=== PATIENT | female | born 1980 | race Caucasian/White ===

== ENCOUNTER → 2016-07-06 | Outpatient (CLI) | payer BC | END | disposition home or self-care (01) | CPT/HCPCS: 97802 ==

== ENCOUNTER → 2016-12-31 | Outpatient (CLI) | payer BC ==
--- NOTE | 2016-12-31 13:11 | US ---
EXAMINATION TYPE: US gallbladder DATE OF EXAM: 12/31/2016 COMPARISON: NONE CLINICAL HISTORY: R10.11 rt upper quad. RUQ pain x 1 year. Intermittent nausea EXAM MEASUREMENTS: Liver Length: 17.4 cm Gallbladder Wall: 0.3 cm CBD: 0.5 cm Right Kidney: 11.1 x 5.4 x 4.7 cm Pancreas: limited evaluation due to overlying bowel content Liver: attenuating, hypoechoic area near tanner hepatis = 2.7 x 1.9 x 2.6cm probable focal sparing Gallbladder: no evidence of stones Evidence for sonographic Argueta's sign: no CBD: appears wnl Right Kidney: no evidence of hydronephrosis or mass Visualized liver is heterogeneously hyperechoic in appearance. Evaluation for focal masses is subopti mal due to the heterogeneity. There is more central hypoechoic area that is somewhat oval and circums cribed on image 6144 which true lesion cannot be excluded. No intrahepatic ductal dilatation is seen. Gallbladder is identified without shadowing mobile gallstones. IMPRESSION: 1. No gallstones or ultrasound evidence for acute cholecystitis. 2. Heterogeneous hyperechoic appearance of liver favors diffuse fatty infiltration. Cannot exclude ov al solid lesion near gallbladder fossa versus rounded focal fatty sparing, further investigation with multi phase contrast-enhanced liver protocol MRI or CT is advised.
--- NOTE | 2016-12-31 15:15 | NM ---
EXAMINATION TYPE: NM hepatobiliary w EF DATE OF EXAM: 12/31/2016 COMPARISON: Same day gallbladder ultrasound HISTORY: Right upper quadrant pain per order. Additional symptoms of nausea and heartburn per patient . TECHNIQUE: After the intravenous administration of 5.4 mCi Tc 99m Mebrofenin hepatobiliary scintigrap hy is performed. Immediate images post injection. FINDINGS: There is satisfactory initial accumulation of tracer by the liver. The gallbladder is visualized wit hin 10 minutes. The small bowel activity is noted within 10 minutes. At one hour 8 ounces of oral e nsure plus is given to mimic CCK and gallbladder ejection fraction is impossible to calculated as the re is significant overlap from radiotracer accumulation in bowel. Therefore there is no scintigraphi c evidence of cystic or common bile duct obstruction to suggest acute cholecystitis. Ejection fractio n could not be calculated. IMPRESSION: No scintigraphic evidence for acute cholecystitis. Suboptimal study with inability to theron culate ejection fraction noted.
== END | disposition home or self-care (01) ==
LOC: RADUSMAIN 11:59
PROVIDERS: ATTEND Family Medicine
DX: R93.2 Abnormal findings on diagnostic imaging of liver and biliary tract (principal); R10.11 Right upper quadrant pain
CPT/HCPCS: 76705; 78226; A9537

== ENCOUNTER → 2017-01-11 | Outpatient (CLI) | payer BC ==
--- NOTE | 2017-01-11 20:25 | CT ---
EXAMINATION TYPE: CT abdomen wo/w con DATE OF EXAM: 01/11/2017 HISTORY: RUQ pain and abnormal findings on US. CT DLP: 2018.2mGycm Automated Exposure Control for Dose Reduction was Utilized. CONTRAST: CT scan of the abdomen is performed with oral and without and with IV Contrast, patient injected with 100 mL of Omnipaque 300. COMPARISON: Gallbladder ultrasound December 31, 2016. FINDINGS: LUNG BASES: No significant abnormality is appreciated. LIVER/GB: Liver is diffusely hypodense on noncontrast images consistent with fatty infiltration as landeros spected on recent ultrasound. Focal fatty sparing or gallbladder fossa is noted. No worrisome solid o r cystic mass is seen. PANCREAS: No significant abnormality is seen. SPLEEN: No significant abnormality is seen. ADRENALS: No significant abnormality is seen. KIDNEYS: Subcentimeter low dense lesion medially upper pole left kidney on series 8 image 30 is too s mall to further characterize per presumed benign. BOWEL: No significant abnormality is seen. LYMPH NODES: No greater than 1cm abdominal lymph nodes are appreciated. OSSEOUS STRUCTURES: No significant abnormality is seen. OTHER: No significant additional abnormality is seen. IMPRESSION: Diffuse fatty infiltration of liver is confirmed with focal fatty sparing. No worrisome i ntrahepatic mass or intrahepatic ductal dilatation is seen.
== END | disposition home or self-care (01) ==
LOC: RADCTMAIN 19:03
PROVIDERS: ATTEND Family Medicine
DX: K76.0 Fatty (change of) liver, not elsewhere classified (principal)
CPT/HCPCS: 74170; Q9967

== ENCOUNTER → 2018-08-01 | Outpatient (CLI) | payer BC ==
--- NOTE | 2018-08-01 21:42 | MR ---
EXAMINATION TYPE: MR brain wo con DATE OF EXAM: 08/01/2018 COMPARISON: NONE HISTORY: Headache per order. Aniscoria with 1 sided headaches per patient. TECHNIQUE: Multiplanar, multisequence imaging of the brain and brainstem is performed without IV cont rast. FINDINGS: Diffusion weighted images demonstrate no evidence of a recent infarct or other diffusion abnormality. There is no extraaxial fluid collection or significant white matter signal abnormality. The ventricu lar system and cisternal spaces are normal in size and appearance. The brain volume is age appropria te. Midline structures demonstrate normal morphology. The craniocervical junction appears within normal limits. Normal vascular flow voids are present. The visualized sinuses are clear and the globes are i ntact. Patchy fluid signal left greater than right bilateral mastoid air cells is present. IMPRESSION: Possible mild left greater than right mastoiditis otherwise unremarkable study.
== END | disposition home or self-care (01) ==
LOC: RADMRIMAIN 19:55
PROVIDERS: ATTEND Family Medicine
DX: R51 Headache (principal)
CPT/HCPCS: 70551

== ENCOUNTER → 2018-08-03 | Outpatient (CLI) | payer BC ==
--- NOTE | 2018-08-04 08:47 | CT ---
EXAMINATION TYPE: CT soft tissue neck wo con DATE OF EXAM: 08/03/2018 HISTORY: Right sided headaches and neck pain. COMPARISON: NONE CT DLP: 586.4 mGycm. Automated Exposure Control for Dose Reduction was Utilized. TECHNIQUE: CT scan of the neck is performed without contrast, axial images are obtained, coronal and sagittal reformatted images are reviewed. FINDINGS: Airway: Airway is patent. Torus tubarius and fossa of Rosenmuller are unremarkable. No significant pa rapharyngeal tonsil enlargement. Vallecula and piriform sinuses are grossly unremarkable. Parotid/submandibular glands: No gross abnormality seen. Carotid/Vascular Structures: Suboptimally evaluated without contrast. Conventional three-vessel branc h pattern of the aortic arch is noted. No significant atherosclerosis. Osseous Structures: Osseous structures appear grossly intact. No significant neural foraminal narrowi ng is seen secondary to degenerative change of the cervical spine however evaluation for disc herniat ion is limited on CT and could be evaluated with MRI of the cervical spine. Vertebral body heights an d alignment are maintained of the cervical spine. Other: Although there is a spiculated appearance at the confluence of multiple right pulmonary vessel s and bronchi on axial series 3 image 13 this is not reproduced on the coronal or sagittal images and appears to simply represent confluence of multiple structures rather than a pulmonary nodule however examination with contrast is recommended for confirmation. 2 mm medial posterior left apical pulmona ry nodule that is solid in nature as seen on series 3 image 24. IMPRESSION: 1. No significant degenerative change of the cervical spine is seen nor neural foraminal narrowing to contribute to this patient's complaint of headaches. Evaluation for disc herniation could be perform ed with MRI of the cervical spine. 2. CT of the chest is recommended to ensure spiculated appearance of a right apical region truly repr esents confluence of pulmonary vessels and bronchi rather than a small developing pulmonary nodule.
== END | disposition home or self-care (01) ==
LOC: RADCTMAIN 17:01
PROVIDERS: ATTEND Family Medicine
DX: R51 Headache (principal)
CPT/HCPCS: 70490

== ENCOUNTER 2019-10-17 08:03 | Inpatient (IN) | payer BC ==
[2019-10-13 15:03] VITALS: BMI 45.3
[2019-10-17] MEDS: LACTATED RINGERS 1,000 ML IV SCH ×4 (08:40→20:21)
[2019-10-17] MEDS ORDERED: CITRIC ACID-SODIUM CITRATE 15 ML CUP PO ONE (08:48)
[2019-10-17 09:03] LABS: Basophils % (A) 0 %; Eosinophils # (A) 0.1 k/uL (0-0.7); Eosinophils % (A) 1 %; HCT 33.4 % (34.0-46.0); HGB 10.9 gm/dL (11.4-16.0); Hypochromasia Moderate; Lymphocytes % (A) 21 %; MCH 24.9 pg (25.0-35.0); MCHC 32.7 g/dL (31.0-37.0); MCV 76.3 fL (80.0-100.0); Mean Platelet Volume 7.5; Microcytosis Slight; Monocytes # (A) 0.5 k/uL (0-1.0); Monocytes % (A) 5 %; Neutrophils # (A) 6.9 k/uL (1.3-7.7); Neutrophils % (A) 71 %; Platelet Count 289 k/uL (150-450); Poikilocytosis Slight; RBC 4.38 m/uL (3.80-5.40); RDW 14.8 % (11.5-15.5); WBC 9.8 k/uL (3.8-10.6)
[2019-10-17] MEDS ORDERED: PHENYLEPHRINE-0.9% NACL SYG 1 MG/10 ML SYRINGE ONE (10:03)
[2019-10-17] MEDS ORDERED: ONDANSETRON 4 MG/2 ML VIAL ONE (10:03)
[2019-10-17] MEDS ORDERED: MORPHINE SULFATE (PF) 0.3 MG/0.3 ML SYR ONE (10:03)
[2019-10-17] MEDS ORDERED: NALBUPHINE 10 MG/ML (1 ML AMP) ONE (10:03)
[2019-10-17] MEDS ORDERED: OXYTOCIN 10 UNIT/ML 1 ML VIAL ONE (10:03)
--- NOTE | 2019-10-17 11:04 | P.HPOB ---
History of Present Illness H&P Date: 10/17/19 Chief Complaint: IUP at 39 and 2/sevenths weeks, history of sacral fracture This is a pleasant 39-year-old 1 para 0 at 39-2/7 weeks that presents to labor and delivery for primary secondary to sacral fracture. Patient has been receiving routine care that is been essentially uncomplicated with the exception of advanced maternal age, hypothyroidism as stated above history of sacral fracture and uterine fibroids. Uterine fibroids had been stable throughout the measuring 5-6 cm on evaluation. Patient was admitted to labor and delivery she noted good movement she denied contractions loss of fluid or vaginal bleeding. On bloodwork this patient has a blood type of A+, rubella status immune, B surface antigen negative, group beta strep negative, HIV negative, RPR nonreactive. Review of Systems Constitutional: Denies chills, Denies fatigue, Denies fever Ears, nose, mouth and throat: Denies headache Cardiovascular: Reports leg edema Respiratory: Denies dyspnea Gastrointestinal: Denies constipation, Denies diarrhea, Denies nausea, Denies vomiting Genitourinary: Reports Past Medical History Past Medical History: Hypertension, Thyroid Disorder Additional Past Medical History / Comment(s): Heartburn occ. On HTN Rx in past, off since wgt loss. Past Hx thyroid Rx for hypothyroid. currently. Edema feet/ankles late in day. Allergy nasal sx. History of Any Multi-Drug Resistant Organisms: None Reported Past Surgical History: Adenoidectomy, Appendectomy, Ear Surgery, Tonsillectomy Additional Past Surgical History / Comment(s): BMT x7-10. Past Anesthesia/Blood Transfusion Reactions: No Reported Reaction Past Psychological History: No Psychological Hx Reported Smoking Status: Former smoker Past Alcohol Use History: None Reported Additional Past Alcohol Use History / Comment(s): Smoked 10 years est, Quit 6-7 years ago. Past Drug Use History: None Reported - Past Family History Mother Family Medical History: Diabetes Mellitus, Hypertension Father Family Medical History: Hypertension, Myocardial Infarction ([place]) Medications and Allergies Home Medications Medication Instructions Recorded Confirmed Type Acetaminophen Tab [Tylenol] 650 mg PO Q6H PRN 10/13/19 10/13/19 History Pnv No.95/Ferrous Fum/Folic AC 1 each PO DAILY 10/13/19 10/13/19 History [ Multivitamin Tablet] Allergies Allergy/AdvReac Type Severity Reaction Status Date / Time No Known Allergies Allergy Verified 10/13/19 14:42 Exam Osteopathic Statement: *. No significant issues noted on an osteopathic structural exam other than those noted in the History and Physical/Consult. Vital Signs Temp Pulse Resp BP 10/17/19 08:22 97.3 F L 89 18 136/84 Intake and Output 10/16/19 10/17/19 10/17/19 22:59 06:59 14:59 Other: Weight 105.233 kg Targeted physical exam was performed in this date and brilliandeer lopper a well- nourished well-developed female in no acute distress. Patient is noted to have nonlabored breathing, heart has regular rate and rhythm, abdomen is gravid and obese. Lower cavity edema +1. heart tones are category 1, she is ca irregularly. Cervical exam is deferred. Results Result Diagrams: 10/17/19 08:35 Abnormal Lab Results - Last 24 Hours (Table) 10/17/19 Range/Units 08:35 Hgb 10.9 L (11.4-16.0) gm/dL Hct 33.4 L (34.0-46.0) % MCV 76.3 L (80.0-100.0) fL MCH 24.9 L (25.0-35.0) pg Assessment and Plan (1) Term Current Visit: Yes Status: Acute Code(s): Z34.90 - ENCNTR FOR SUPRVSN OF NORMAL , UNSP, UNSP TRIMESTER SNOMED Code(s): 97768122 (2) AMA (advanced maternal age) primigravida 35+ Current Visit: Yes Status: Acute Code(s): O09.519 - SUPERVISION OF ELDERLY PRIMIGRAVIDA, UNSPECIFIED TRIMESTER SNOMED Code(s): 16373003 (3) Hypothyroid Current Visit: Yes Status: Acute Code(s): E03.9 - HYPOTHYROIDISM, UNSPECIFIED SNOMED Code(s): 10589118 (4) Uterine fibroid Current Visit: Yes Status: Acute Code(s): D25.9 - LEIOMYOMA OF UTERUS, UNSPECIFIED SNOMED Code(s): 64357153 Plan: Patient is admitted to labor and delivery for scheduled primary sec ondary to history of sacral fracture. Patient was counseled on primary C- section was reviewed and all questions were answered. Patient stated understanding and was taken back to the operating suite.
[2019-10-17] MEDS ORDERED: SIMETHICONE 80 MG CHEWABLE PO PRN (11:08)
[2019-10-17] MEDS ORDERED: HYDROcodone/APAP 5-325MG 1 EACH TAB PO PRN (11:08)
[2019-10-17] MEDS ORDERED: diphenhydrAMINE 50 MG CAP PO PRN (11:08)
[2019-10-17] MEDS ORDERED: METOCLOPRAMIDE 5 MG/ML 2 ML VIAL IVP PRN (11:08)
[2019-10-17] MEDS ORDERED: ACETAMINOPHEN IV (For NPO) 1,000 MG in EMPTY BAG 1 BAG IVPB ONE (11:08)
[2019-10-17] MEDS ORDERED: ONDANSETRON 4 MG/2 ML VIAL IVP PRN ×2 (11:08→18:19)
[2019-10-17] MEDS ORDERED: diphenhydrAMINE 50 MG/ML 1 ML VIAL IVP PRN ×3 (11:08→18:19)
[2019-10-17] MEDS ORDERED: ZOLPIDEM 5 MG TAB PO PRN (11:08)
[2019-10-17] MEDS ORDERED: NALOXONE 0.4 MG/ML 1 ML VIAL IV PRN ×2 (11:08→18:19)
[2019-10-17] MEDS ORDERED: diphenhydrAMINE 25 MG CAP PO PRN (11:08)
--- NOTE | 2019-10-17 11:08 | P.OP ---
Date of Procedure: 10/17/19 Preoperative Diagnosis: IUP at 39 and 2/sevenths weeks, history of sacral fracture, uterine fibroids Postoperative Diagnosis: Same Procedure(s) Performed: Primary low transverse section Anesthesia: spinal Surgeon: Kirti Jamison Blue Line Operator #1: Ellen Rai Estimated Blood Loss (ml): 500 IV fluids (ml): 1,000 Urine output (ml): 50 Pathology: none sent Condition: stable Disposition: observation Indications for Procedure: History of sacral fracture Operative Findings: Uterus with enlarged lateral fibroid noted, viable female infant delivered at 1024, weight of 8 lbs. 4 oz. and Apgars of 9 and 9 at one and 5 minutes respectively. Description of Procedure: Patient was taken back to the operating suite where spinal anesthesia was found be adequate by the anesthesia department. She was prepped and draped in normal sterile fashion in the dorsal supine position. A Pfannenstiel skin incision was made with the scalpel and carried through the underlying layer of fascia. The fascia was then incised in the midline and extended laterally. The superior aspect of the fascial incision was then grasped lily clamps, elevated and underlying rectus muscles dissected off sharply. The inferior aspect of the fascial incision was then grasped lily clamps, elevated and underlying rectus muscles dissected off sharply. Rectus muscles were in the midline the peritoneum was identified and entered. This incision was then extended superiorly and inferiorly with good visualization the bladder. The bladder blade was then inserted into the pelvis. The vesicouterine peritoneum was identified and a bladder flap was created. Hysterotomy incision was made amniotomy was performed and clear fluid was obtained. The was then delivered in a vertex presentation and handed off to [facility] after the umbilical cord was doubly clamped and cut. The placenta was then delivered manually and the uterus was cleared of all clots and debris. The hysterotomy incision was then closed with 0 Vicryl in a running locked fashion. A second layer of suture was used to obtain hemostasis. On inspection hemostasis was appreciated. The pelvis then copiously irrigated. The uterus was then returned to the abdomen. The rectus muscles were inspected and hemostatic. The fascia was closed with 0 Vicryl in a running fashion from one lateral edge the midline and the other lateral edge the midline. The subcu cutaneous tissue was then irrigated hemostasis was appreciated and it was closed with 3-0 Vicryl. The skin was then closed with 4-0 Vicryl in a subcuticular fashion. Steri-Strips and sterile dressings were applied. All counts are correct 2 patient tolerated procedure well was taken the recovery room in stable condition.
[2019-10-17] MEDS ORDERED: IBUPROFEN IV 800 MG in SODIUM CHLORIDE 0.9% 250 ML IV ONE (11:10)
[2019-10-17] MEDS ORDERED: OXYTOCIN 20 UNITS/1000 ML NS 1,000 ML IV SCH (11:15)
[2019-10-17] MEDS ORDERED: HYDROmorphone 0.5 MG/0.5 ML SYRINGE IVP PRN (18:19)
[2019-10-17] MEDS ORDERED: KETOROLAC 30 MG/ML 1 ML VIAL IVP PRN (18:19)
[2019-10-17] MEDS: SENNOSIDES-DOCUSATE SODIUM 1 EACH TAB PO SCH (20:07)
[2019-10-18] MEDS: IBUPROFEN 600 MG TAB PO PRN ×3 (04:10→22:53)
[2019-10-18] MEDS: LACTATED RINGERS 1,000 ML IV SCH (04:55)
[2019-10-18 06:45] LABS: Basophils % (A) 0 %; Eosinophils % (A) 0 %; HCT 30.8 % (34.0-46.0); HGB 9.5 gm/dL (11.4-16.0); Hypochromasia Marked; Lymphocytes # (A) 1.6 k/uL (1.0-4.8); Lymphocytes % (A) 14 %; MCH 24.1 pg (25.0-35.0); MCHC 30.7 g/dL (31.0-37.0); MCV 78.4 fL (80.0-100.0); Mean Platelet Volume 7.5; Monocytes # (A) 0.6 k/uL (0-1.0); Monocytes % (A) 5 %; Neutrophils # (A) 9.6 k/uL (1.3-7.7); Neutrophils % (A) 80 %; Platelet Count 239 k/uL (150-450); RBC 3.93 m/uL (3.80-5.40); RDW 15.4 % (11.5-15.5); WBC 12.1 k/uL (3.8-10.6)
--- NOTE | 2019-10-18 08:09 | P.PN ---
Progress Note - Text Progress Note Date: 10/18/19 Postoperative day 1 status post section under spinal anesthesia, and i ntrathecal morphine given for postoperative analgesia, patient doing well, there is no anesthesia related complications, Patient had no headache, vital signs stable , Assessment and plan= postop day 1 status post , doing well there is no anesthesia related complication.
[2019-10-18] MEDS: PRENATAL VIT-IRON-FOLIC ACID 1 EACH CAP PO SCH (08:23)
[2019-10-18] MEDS: SENNOSIDES-DOCUSATE SODIUM 1 EACH TAB PO SCH ×2 (08:23→19:48)
--- NOTE | 2019-10-18 12:06 | P.PNOBGPC ---
Subjective - Subjective Principal diagnosis: POD 1 LTCS Interval history: pt is doing well postoperatively. she is ambulating and voiding without difficulty. she states her pain is well controlled. lochia is moderate. she is breast feeding without difficulty. she denies any concerns this am Patient reports: Reports appetite normal, Reports voiding normally, Reports pain well controlled, Reports ambulating normally [place]: doing well, nursing well Objective - Vital Signs Latest vital signs: Vital Signs Temp Pulse Resp BP Pulse Ox 10/18/19 08:00 98.3 F 79 18 125/74 97 10/18/19 04:00 98.5 F 87 16 119/72 96 10/18/19 00:00 98.3 F 75 16 113/71 95 10/17/19 20:00 97.8 F 71 16 126/76 99 10/17/19 19:19 16 99 10/17/19 16:00 97.8 F 88 16 118/78 98 10/17/19 14:11 79 16 129/82 96 10/17/19 12:59 75 16 139/86 96 Intake and Output 10/17/19 10/18/19 10/18/19 22:59 06:59 14:59 Output Total 700 900 Balance -700 -900 Output: Urine 700 900 Uretheral (Zarate) 300 Other: # Voids 1 1 - Exam Extremities: Present: normal, edema Abdomen: Present: normal appearance Incision: Present: normal, dry, intact Uterus: Present: normal, firm - Labs Labs: Abnormal Lab Results - Last 24 Hours (Table) 10/18/19 Range/Units 05:27 WBC 12.1 H (3.8-10.6) k/uL Hgb 9.5 L (11.4-16.0) gm/dL Hct 30.8 L (34.0-46.0) % MCV 78.4 L (80.0-100.0) fL MCH 24.1 L (25.0-35.0) pg MCHC 30.7 L (31.0-37.0) g/dL Neutrophils # 9.6 H (1.3-7.7) k/uL Assessment and Plan (1) Term Current Visit: Yes Status: Acute Code(s): Z34.90 - ENCNTR FOR SUPRVSN OF NORMAL , UNSP, UNSP TRIMESTER SNOMED Code(s): 18971793 (2) AMA (advanced maternal age) primigravida 35+ Current Visit: Yes Status: Acute Code(s): O09.519 - SUPERVISION OF ELDERLY PRIMIGRAVIDA, UNSPECIFIED TRIMESTER SNOMED Code(s): 19758576 (3) Hypothyroid Current Visit: Yes Status: Acute Code(s): E03.9 - HYPOTHYROIDISM, UNSPECIFIED SNOMED Code(s): 08526262 (4) Uterine fibroid Current Visit: Yes Status: Acute Code(s): D25.9 - LEIOMYOMA OF UTERUS, UNSPECIFIED SNOMED Code(s): 58683810 (5) S/P section Current Visit: Yes Status: Acute Code(s): Z98.891 - HISTORY OF UTERINE SCAR FROM PREVIOUS SURGERY SNOMED Code(s): 975204168 Plan: pt is doing well, will plan to continue routine PP care. anticipate d/c home tomorrow.
[2019-10-18] MEDS: ACETAMINOPHEN TAB 325 MG TAB PO PRN (19:48)
[2019-10-19] MEDS: ACETAMINOPHEN TAB 325 MG TAB PO PRN ×2 (02:03→07:55)
[2019-10-19] MEDS: IBUPROFEN 600 MG TAB PO PRN ×2 (04:49→12:21)
[2019-10-19] MEDS: PRENATAL VIT-IRON-FOLIC ACID 1 EACH CAP PO SCH (07:56)
--- NOTE | 2019-10-19 08:52 | P.DS ---
Providers Date of admission: 10/17/19 08:03 Expected date of discharge: 10/19/19 Attending physician: Kirti Jamison Primary care physician: Stated None - Discharge Diagnosis(es) (1) Term Current Visit: Yes Status: Acute (2) AMA (advanced maternal age) primigravida 35+ Current Visit: Yes Status: Acute (3) Hypothyroid Current Visit: Yes Status: Acute (4) Uterine fibroid Current Visit: Yes Status: Acute (5) S/P section Current Visit: Yes Status: Acute Hospital Course: This is a pleasant 39-year-old 1 para 0 at 39-2/7 weeks that presented to labor and delivery for elective primary secondary history of a sacral fracture. Patient is noted advanced maternal age with known uterine fibroids that have been stable throughout the largest measurement 5-6 cm. Patient had received routine care with myself for further details please see the completed dictated H&P. Patient was taken to the operating room where primary was performed without difficulty. Viable female was delivered at 1024 with a weight of 8 lbs. 4 oz. and Apgars of 9 and 9 at one and 5 minutes respectively. Uterus was noted to have an enlarged lateral fibroid around 6 cm. Patient's postoperative course has been uneventful. Postoperative hemoglobin was 9.5 from 10.9 on admission. Patient is ambulating and voiding without difficulty. She is tolerating a regular diet with without nausea or vomiting. She is breast and bottle feeding at this time. Patient is taking ibuprofen for discomfort. Patient is concerned as was up quite a bit last night and is considering discharge home later today. Patient Condition at Discharge: Good Plan - Discharge Summary Discharge Rx Participant: No New Discharge Prescriptions: No Action Pnv No.95/Ferrous Fum/Folic AC [ Multivitamin Tablet] 1 each PO DAILY Acetaminophen Tab [Tylenol] 650 mg PO Q6H PRN PRN Reason: Pain Discharge Medication List Acetaminophen Tab [Tylenol] 650 mg PO Q6H PRN 10/13/19 [History] Pnv No.95/Ferrous Fum/Folic AC [ Multivitamin Tablet] 1 each PO DAILY 10/13/19 [History] Follow up Appointment(s)/Referral(s): Kirti Jamison DO [Doctor of Osteopathic Medicine] - 2 Weeks Patient Instructions/Handouts: (GEN), (DC) Discharge Disposition: HOME SELF-CARE
[2019-10-19 17:02] VITALS: BP 142/85; PULSE 79; RESP 16; TEMP 98.4
== END 2019-10-19 18:30 | disposition home or self-care (01) | DRG 788 ==
LOC: 4FBP 08:03
PROVIDERS: ADMIT Obstetrics & Gynecology Obstetrics; ATTEND Obstetrics & Gynecology Obstetrics
PROC: 10D00Z1 Extraction of Products of Conception, Low, Open Approach (ICD-10-PCS; principal; 2019-10-17 10:00)
DX: O34.13 Maternal care for benign tumor of corpus uteri, third trimester (principal); O99.284 Endocrine, nutritional and metabolic diseases complicating childbirth; D25.9 Leiomyoma of uterus, unspecified; E03.9 Hypothyroidism, unspecified; O99.62 Diseases of the digestive system complicating childbirth; K21.9 Gastro-esophageal reflux disease without esophagitis; Z37.0 Single live birth; Z3A.39 39 weeks gestation of pregnancy; Z87.891 Personal history of nicotine dependence; Z87.81 Personal history of (healed) traumatic fracture; Z90.49 Acquired absence of other specified parts of digestive tract; Z82.49 Family history of ischemic heart disease and other diseases of the circulatory system; Z83.3 Family history of diabetes mellitus
CPT/HCPCS: 85025; 86850; 86900; 86901

== ENCOUNTER → 2021-10-23 | Outpatient (CLI) | payer BC ==
--- NOTE | 2021-10-23 11:50 | US ---
EXAMINATION TYPE: Transabdominal DATE OF EXAM: 10/23/2021 10:57 AM COMPARISON: NONE CLINICAL HISTORY: O76 ABNLT IN HEART RATE AND RHYTHM COMP LABO. No heart tones at office- patient sent over. Patient states having an US 2 weeks ago and everything was fine. EXAM PERFORMED: Transabdominal (TA) EXAM MEASUREMENTS: GESTATIONAL AGE / DATING Physician Established: (10 weeks/5 days) EDC: 05/16/2022 Dates by Current Scan for: (10 weeks/0 days) EDC: 05/21/2022 MATERNAL ANATOMY Uterus: 13.8 x 10.4 x 7.3 cm, right fibroid = Right Ovary: Obscured by bowel gas. Left Ovary: 2.8 x 2.1 x 2.0 Post CDS / Adnexa: no free fluid Presence of free fluid: no Presence of corpus luteal cyst: not visualized Presence of subchorionic bleed: 3.1 x 3.7 x 1.6 cm GESTATION / SURVEY CRL: 2.9 cm (9 weeks/6 days) MSD: 4.4 cm (10 weeks/1 days) Yolk Sac (normal less than 6mm): Not visualized Heart Rate: 0 bpm IUP: Demise Date of LMP: 08/09/2021, Beta HcG (if available): Not available at this time Negative heart tones- Color doppler and m-mode performed. Large right uterine fibroid = 6.2 x 6.4 x 6.0 cm. Subchorionic bleed seen. Intrauterine gestation identified as gestational sac and pole seen. Yolk sac not clearly identi fied. heart tones cannot be documented despite multiple attempts including use of M-mode. Adjac ent moderate sized fluid collection measuring 3.7 x 3.1 x 1.6 cm inferiorly suspicious for subchorion ic bleed. There is enlargement calcified fibroid in the fundus measuring near 6.0 cm. No free fluid. Left ovary is identified an normal in size. Right ovary not seen. No suspicious adnexal masses on blayne ges saved. IMPRESSION: Findings consistent with intrauterine demise as detailed above.
== END | disposition home or self-care (01) ==
LOC: RADUSWWP 10:36
PROVIDERS: ATTEND Obstetrics & Gynecology Obstetrics
DX: O76 Abnormality in fetal heart rate and rhythm complicating labor and delivery (principal)
CPT/HCPCS: 76801

== ENCOUNTER 2021-10-24 05:44 | Day surgery (SDC) | payer BC ==
[~2021-10-24 05:44] MED LIST: Pre Op ABX Message 1 EACH MISC MISCELLANE ONE
[2021-10-24] MEDS ORDERED: ONDANSETRON 4 MG/2 ML VIAL ONE (06:11)
[2021-10-24 06:37] LABS: Anisocytosis Slight; Basophils % (A) 1 %; Eosinophils # (A) 0.1 k/uL (0-0.7); Eosinophils % (A) 2 %; HCT 36.8 % (34.0-46.0); HGB 11.5 gm/dL (11.4-16.0); Lymphocytes # (A) 2.2 k/uL (1.0-4.8); Lymphocytes % (A) 29 %; MCH 23.2 pg (25.0-35.0); MCHC 31.2 g/dL (31.0-37.0); MCV 74.1 fL (80.0-100.0); Mean Platelet Volume 6.8; Microcytosis Slight; Monocytes # (A) 0.4 k/uL (0-1.0); Monocytes % (A) 5 %; Neutrophils # (A) 4.7 k/uL (1.3-7.7); Neutrophils % (A) 61 %; Platelet Count 294 k/uL (150-450); RBC 4.96 m/uL (3.80-5.40); RDW 16.1 % (11.5-15.5); WBC 7.6 k/uL (3.8-10.6)
[2021-10-24] MEDS ORDERED: LACTATED RINGERS 1,000 ML IV ONE (06:52)
[2021-10-24] MEDS ORDERED: SCOPOLAMINE 1 MG/72 HR PATCH TRANSDERM ONE (06:53)
[2021-10-24] MEDS ORDERED: ONDANSETRON 4 MG/2 ML VIAL IVP ONE (06:53)
[2021-10-24] MEDS ORDERED: DEXAMETHASONE SOD PHOSPHATE 4 MG/ML 1 ML VIAL IVP ONE (06:53)
[2021-10-24] MEDS ORDERED: MIDAZOLAM 2 MG/2 ML VIAL ONE (07:04)
[2021-10-24] MEDS ORDERED: PROPOFOL 10 MG/ML 20 ML VIAL IV ONE (07:04)
[2021-10-24] MEDS ORDERED: fentaNYL (PF) 50 MCG/ML 2 ML AMP ONE (07:04)
[2021-10-24] MEDS ORDERED: SUCCINYLCHOLINE CHLORIDE 100 MG/5 ML SYR IV ONE (07:04)
[2021-10-24] MEDS ORDERED: LIDOCAINE 2% INJ 20 MG/ML (2 ML VIAL) ONE (07:04)
[2021-10-24] MEDS ORDERED: METHYLERGONOVINE 0.2 MG/ML 1 ML AMP ONE (07:04)
[2021-10-24] MEDS ORDERED: KETOROLAC 15 MG/ML 1 ML VIAL ONE (07:04)
--- NOTE | 2021-10-24 07:55 | P.OP ---
Date of Procedure: 10/24/21 Preoperative Diagnosis: Missed AB Postoperative Diagnosis: Same Procedure(s) Performed: Suction dilation and curettage Anesthesia: RENETTA Surgeon: Kirti Jamison Estimated Blood Loss (ml): 5 IV fluids (ml): 500 Urine output (ml): 50 Pathology: other (Uterine contents) Condition: stable Disposition: PACU Indications for Procedure: Missed AB no heart tones noted at 9 weeks 5 days Operative Findings: Moderate amount of products of conception Description of Procedure: Patient is taken back to the operating suite where general anesthesia obtained without difficulty by the anesthesia department. She is prepped and draped in normal sterile fashion in the dorsal lithotomy position. A red rubber catheter was used to drain the bladder clear yellow urine. A weighted speculum was placed in the posterior vaginal vault. The anterior lip of the cervix is visualized and grasped with a single-tooth tenaculum. The endocervical canal was then serially dilated. The 8 curved suction curet is placed through the cervix and toward the endometrial cavity where after multiple passes a moderate amount of products of conception is removed. A gentle curettage was then performed. The suction curet was then passed 2 additional times to ensure complete evacuation of products of conception. The uterus was noted to be firm. Methergine was given IM. The suction curet is removed the cecal tooth tenaculum was taken off of the anterior lip the cervix and hemostasis was appreciated. No bleeding is appreciated from the cervical os. All instruments were then removed from the patient's vaginal vault. All counts were noted to be correct 2. Patient tolerated procedure well and was taken the recovery room awake in stable condition.
[2021-10-24 08:01] VITALS: TEMP 96.8
[2021-10-24 08:45] VITALS: BP 128/80; PULSE 67; RESP 16
== END 2021-10-24 09:12 | disposition home or self-care (01) ==
LOC: OR 05:44
PROVIDERS: ATTEND Obstetrics & Gynecology Obstetrics
DX: O02.1 Missed abortion (principal); K21.9 Gastro-esophageal reflux disease without esophagitis; Z87.891 Personal history of nicotine dependence; Z79.82 Long term (current) use of aspirin
CPT/HCPCS: 59820; 86900; 86901; 88305; 85025; 86850; J2250; J1100; J2210; J2405; J3010; J1885; J0330; J2704; J2001

== ENCOUNTER 2021-10-25 17:15 | Observation (INO) | payer BC ==
[2021-10-25] MEDS ORDERED: SODIUM CHLORIDE 0.9% 1,000 ML IV STA (17:41)
[2021-10-25] MEDS ORDERED: ONDANSETRON 4 MG/2 ML VIAL IVP STA (17:41)
[2021-10-25] MEDS ORDERED: HYDROmorphone 1 MG/ML 1 ML SYRINGE IVP STA (17:41)
--- NOTE | 2021-10-25 17:49 | ED ---
General Adult HPI - General Chief complaint: Abdominal Pain Stated complaint: abdominal pain after surgery Time Seen by Provider: 10/25/21 17:24 Source: patient, RN notes reviewed Mode of arrival: ambulatory Limitations: no limitations - History of Present Illness Initial comments: 41-year-old female presents to the emergency department for evaluation of increased lower abdominal pain and cramping status post D&C yesterday. Patient states he had a D&C due to an undetectable heart beat in early . Patient states her pain began this morning and has worsened throughout the day. Reports increased vaginal bleeding along with clots this morning, however states this has decreased throughout the day. States she spoke with the on-call OB who did call in some Tylenol 3 and encouraged her to take some Motrin. As patient did not achieve any relief of symptoms, she was encouraged to come to the emergency department. Patient denies fever, chills, chest pain, shortness of breath, nausea, vomiting, diarrhea, dysuria, flank pain, and back pain. - Related Data Home Medications Medication Instructions Recorded Confirmed Acetaminophen Tab [Tylenol] 650 mg PO Q6H PRN 10/13/19 10/25/21 Acetaminophen-Codeine 300-30mg 1 - 2 tab PO Q4-6H PRN 10/25/21 10/25/21 [Tylenol w/codeine #3] Allergies Allergy/AdvReac Type Severity Reaction Status Date / Time No Known Allergies Allergy Verified 10/25/21 17:37 Review of Systems ROS Statement: Those systems with pertinent positive or pertinent negative responses have been documented in the HPI. ROS Other: All systems not noted in ROS Statement are negative. Past Medical History Past Medical History: Hypertension, Thyroid Disorder Additional Past Medical History / Comment(s): Heartburn occ. On HTN Rx in past, off since wgt loss. Past Hx thyroid Rx for hypothyroid. currently. Edema feet/ankles late in day. Allergy nasal sx. History of Any Multi-Drug Resistant Organisms: None Reported Past Surgical History: Adenoidectomy, Appendectomy, Ear Surgery, Tonsillectomy Additional Past Surgical History / Comment(s): BMT x7-10.D&C 2021 Past Anesthesia/Blood Transfusion Reactions: No Reported Reaction Past Psychological History: No Psychological Hx Reported Smoking Status: Never smoker Past Alcohol Use History: None Reported Past Drug Use History: None Reported - Past Family History Mother Family Medical History: Diabetes Mellitus, Hypertension Father Family Medical History: Hypertension, Myocardial Infarction ([place]) General Exam Limitations: no limitations General appearance: alert, in distress, other (Well-developed, well-nourished female in moderate distress. Initial temperature 98.2, pulse 62, respirations 24, blood pressure 165/77, pulse ox 96% on room air.) Head exam: Present: atraumatic, normocephalic, normal inspection Eye exam: Present: normal appearance. Absent: scleral icterus, conjunctival injection ENT exam: Present: normal oropharynx, mucous membranes moist Respiratory exam: Present: normal lung sounds bilaterally. Absent: respiratory distress, wheezes, rales, rhonchi, stridor Cardiovascular Exam: Present: regular rate, normal rhythm, normal heart sounds. Absent: systolic murmur, diastolic murmur, rubs, gallop, clicks GI/Abdominal exam: Present: soft, normal bowel sounds, other (patient tearful and restless; unable to localize pain beyond the lower portion of her abdomen in the suprapubic region.). Absent: distended, tenderness, guarding, rebound, rigid Back exam: Absent: CVA tenderness (R), CVA tenderness (L) Neurological exam: Present: alert, oriented X3 Psychiatric exam: Present: anxious Skin exam: Present: warm, dry, intact, normal color. Absent: rash Course Vital Signs 10/25/21 10/25/21 10/25/21 17:16 18:00 21:42 Temperature 98.2 F Pulse Rate 62 68 68 Respiratory 24 18 18 Rate Blood Pressure 165/77 133/86 O2 Sat by Pulse 96 98 96 Oximetry 10/25/21 10/26/21 23:00 01:11 Temperature Pulse Rate 69 62 Respiratory 18 18 Rate Blood Pressure 142/74 134/78 O2 Sat by Pulse 95 95 Oximetry - Reevaluation(s) Reevaluation #1: 10/25/21 18:55 Upon reevaluation, patient appears to be resting more comfortably. States her pain level has improved somewhat though continues to have intermittent episodes of severe cramping pain which she states she feels in her low pelvis extending into her vagina. Also complains of bilateral hip pain describing it as if she ran a marathon. Abdomen remains soft; pain does not worsen with palpation. Patient is comfortable enough to proceed to ultrasound at this time. 10/25/21 22:[address] Mcgraw regarding this patient's care and findings. He recommends observation admission and will see her in the morning. Patient is also agreeable with this plan of care. Medical Decision Making - Medical Decision Making 41-year-old female who had a D&C yesterday due to demise, presents to the emergency department for evaluation of worsening abdominal pain and cramping, onset this afternoon. Upon exam, the patient was initially restless and tearful due to discomfort. She was given pain medication with significant improvement, though continued to be uncomfortable. Minimal vaginal bleeding. Laboratory studies were reviewed showing WBC 13.8 which was felt to be reactive. Stable hemoglobin 10.7. Patient was afebrile and not tachycardic. Ultrasound was concerning for possible retained products. I did speak with Dr. Mcgraw regardin this patient's care. He recommends admission to the hospital for IV fluids, pain control, and reevaluation. Patient and spouse are agreeable with this plan. Attending: Nataliia. - Lab Data Result diagrams: 10/25/21 18:09 10/25/21 18:09 Lab Results 10/25/21 10/25/21 10/25/21 Range/Units 18:09 18:09 18:09 WBC 13.8 H (3.8-10.6) k/uL RBC 4.56 (3.80-5.40) m/uL Hgb 10.7 L (11.4-16.0) gm/dL Hct 34.3 (34.0-46.0) % MCV 75.3 L (80.0-100.0) fL MCH 23.5 L (25.0-35.0) pg MCHC 31.3 (31.0-37.0) g/dL RDW 16.7 H (11.5-15.5) % Plt Count 263 (150-450) k/uL MPV 6.9 Neutrophils % 84 % Lymphocytes % 11 % Monocytes % 3 % Eosinophils % 0 % Basophils % 0 % Neutrophils # 11.6 H (1.3-7.7) k/uL Lymphocytes # 1.5 (1.0-4.8) k/uL Monocytes # 0.5 (0-1.0) k/uL Eosinophils # 0.1 (0-0.7) k/uL Basophils # 0.0 (0-0.2) k/uL Hypochromasia Slight Anisocytosis Slight Microcytosis Slight PT 10.9 (9.0-12.0) sec INR 1.0 (<1.2) APTT 20.8 L (22.0-30.0) sec Sodium 136 L (137-145) mmol/L Potassium 3.7 (3.5-5.1) mmol/L Chloride 104 (98-107) mmol/L Carbon Dioxide 23 (22-30) mmol/L Anion Gap 9 mmol/L BUN 12 (7-17) mg/dL Creatinine 0.79 (0.52-1.04) mg/dL Est GFR (CKD-EPI)AfAm >90 (>60 ml/min/1.73 sqM) Est GFR (CKD-EPI)NonAf >90 (>60 ml/min/1.73 sqM) Glucose 126 H (74-99) mg/dL Calcium 8.5 (8.4-10.2) mg/dL Total Bilirubin 0.4 (0.2-1.3) mg/dL AST 22 (14-36) U/L ALT 15 (4-34) U/L Alkaline Phosphatase 50 (38-126) U/L Total Protein 6.7 (6.3-8.2) g/dL Albumin 3.8 (3.5-5.0) g/dL - Radiology Data Radiology results: report reviewed, image reviewed Ultrasound of the pelvis was obtained. Report was reviewed in its entirety. Impression per Dr. De is there is significant complex thickening of the endometrium and the cervical canal consistent with blood clot and debris. Possible retained products. No adnexal masses. Disposition Clinical Impression: Postoperative lower abdominal pain Disposition: ADMITTED IP TO THIS [facility] Condition: Serious Decision Date: 10/25/21 Decision Time: 22:23
[2021-10-25 18:22] LABS: Anisocytosis Slight; Basophils % (A) 0 %; Eosinophils # (A) 0.1 k/uL (0-0.7); Eosinophils % (A) 0 %; HCT 34.3 % (34.0-46.0); HGB 10.7 gm/dL (11.4-16.0); Hypochromasia Slight; Lymphocytes # (A) 1.5 k/uL (1.0-4.8); Lymphocytes % (A) 11 %; MCH 23.5 pg (25.0-35.0); MCHC 31.3 g/dL (31.0-37.0); MCV 75.3 fL (80.0-100.0); Mean Platelet Volume 6.9; Microcytosis Slight; Monocytes # (A) 0.5 k/uL (0-1.0); Monocytes % (A) 3 %; Neutrophils # (A) 11.6 k/uL (1.3-7.7); Neutrophils % (A) 84 %; Platelet Count 263 k/uL (150-450); RBC 4.56 m/uL (3.80-5.40); RDW 16.7 % (11.5-15.5); WBC 13.8 k/uL (3.8-10.6)
[2021-10-25 18:32] LABS: ALT 15 U/L (4-34); AST 22 U/L (14-36); African American GFR (CKD) >90 (>60 ml/min/1.73 sqM); Albumin 3.8 g/dL (3.5-5.0); Alkaline Phosphatase 50 U/L (38-126); Anion Gap 9 mmol/L; Blood Urea Nitrogen 12 mg/dL (7-17); Calcium 8.5 mg/dL (8.4-10.2); Carbon Dioxide 23 mmol/L (22-30); Chloride 104 mmol/L (98-107); Glucose 126 mg/dL (74-99); Non-African American GFR(CKD) >90 (>60 ml/min/1.73 sqM); Potassium 3.7 mmol/L (3.5-5.1); Sodium 136 mmol/L (137-145); Total Bilirubin 0.4 mg/dL (0.2-1.3); Total Protein 6.7 g/dL (6.3-8.2)
[2021-10-25 18:43] LABS: Prothrombin Time 10.9 sec (9.0-12.0)
[2021-10-25 18:47] LABS: Partial Thromboplastin Time 20.8 sec (22.0-30.0)
--- NOTE | 2021-10-25 20:29 | US ---
EXAMINATION TYPE: US pelvic complete DATE OF EXAM: 10/25/2021 COMPARISON: US CLINICAL HISTORY: lower abdominal pain and cramping s/p D C. Lower abdominal pain and cramping. G2. P 1. Patient has had 1 C section in the past. demise at 10 weeks gestation with D and C yesterday . Patient has hx of large fibroid. TECHNIQUE: Transabdominal (TA). Transabdominal sonographic images of the pelvis were acquired. Tra nsvaginal sonographic images were medically necessary to better assess the following anatomy: Deferre d at this time. Per ordering physician Linda (TRAY), TV not advised unless significant limitation. Date of LMP: 08/08/2021 EXAM MEASUREMENTS: Uterus: 15.4 x 6.9 x 6.4 cm Endometrial Stripe: 2.7 cm Right Ovary: 3.2 x 2.1 x 1.8 cm Left Ovary: 2.7 x 2.8 x 1.6 cm 1. Uterus: Anteverted Complex fluid seen with echogenic components within the lower uterus/cervix area: 7.1 x 3.6 x 3.5 cm. Color flow not visualized within. Large area of mixed echogenicity seen wi thin the left uterus/ extending into the left adnexa: 7.5 x 7.7 x 6.3 cm- pt has history of large fib roid as seen on prior ultrasound. 2. Endometrium: Measures thickened at 2.7 cm post D and C yesterday. 3. Right Ovary: Appears wnl 4. Left Ovary: Appears wnl Spectral, color and waveform doppler imaging shows good arterial and venous flow within the ovaries . 5. Bilateral Adnexa: Appears wnl 6. Posterior cul-de-sac: Appears wnl IMPRESSION: There is significant complex thickening of the endometrium and the cervical canal consistent with blo od clot and debris. Possible retained products. No adnexal mass.
[2021-10-25] MEDS ORDERED: HYDROmorphone 0.5 MG/0.5 ML SYRINGE IVP STA (21:12)
[2021-10-25] MEDS ORDERED: NALOXONE 0.4 MG/ML 1 ML VIAL IV PRN (22:24)
[2021-10-25] MEDS ORDERED: ONDANSETRON 4 MG/2 ML VIAL IVP PRN (22:24)
[2021-10-26] MEDS: SODIUM CHLORIDE 0.9% 1,000 ML IV SCH ×2 (01:56→08:04)
[2021-10-26] MEDS: HYDROmorphone 0.5 MG/0.5 ML SYRINGE IVP PRN ×2 (01:56→08:12)
[2021-10-26 06:16] LABS: Anisocytosis Slight; Basophils % (A) 0 %; Eosinophils # (A) 0.2 k/uL (0-0.7); Eosinophils % (A) 1 %; HCT 30.4 % (34.0-46.0); HGB 9.3 gm/dL (11.4-16.0); Hypochromasia Slight; Lymphocytes # (A) 2.6 k/uL (1.0-4.8); Lymphocytes % (A) 21 %; MCH 23.4 pg (25.0-35.0); MCHC 30.7 g/dL (31.0-37.0); Mean Platelet Volume 6.9; Microcytosis Slight; Monocytes # (A) 0.6 k/uL (0-1.0); Monocytes % (A) 5 %; Neutrophils # (A) 8.9 k/uL (1.3-7.7); Neutrophils % (A) 71 %; Platelet Count 212 k/uL (150-450); RDW 16.5 % (11.5-15.5); WBC 12.5 k/uL (3.8-10.6)
[2021-10-26 06:36] LABS: African American GFR (CKD) >90 (>60 ml/min/1.73 sqM); Anion Gap 9 mmol/L; Blood Urea Nitrogen 6 mg/dL (7-17); Calcium 7.5 mg/dL (8.4-10.2); Carbon Dioxide 22 mmol/L (22-30); Chloride 108 mmol/L (98-107); Glucose 97 mg/dL (74-99); Non-African American GFR(CKD) >90 (>60 ml/min/1.73 sqM); Potassium 3.4 mmol/L (3.5-5.1); Sodium 139 mmol/L (137-145)
[2021-10-26 06:40] LABS: Appearance,Urine Clear (Clear); Bilirubin,Urine Negative (Negative); Blood,Urine Large (Negative); Color,Urine Yellow; Glucose,Urine (UA) Negative (Negative); Ketones,Urine Negative (Negative); Leukocyte Esterase,Urine Trace (Negative); Mucus,Urine Few /hpf; Nitrite,Urine Negative (Negative); Protein,Urine Trace (Negative); RBC,Urine 15 /hpf (0-5); Specific Gravity,Urine 1.023 (1.001-1.035); Squamous Epithelial Cell,Urine 3 /hpf (0-4); Urobilinogen,Urine <2.0 mg/dL (<2.0); WBC,Urine 6 /hpf (0-5)
--- NOTE | 2021-10-26 10:01 | P.HPOB ---
History of Present Illness H&P Date: 10/26/21 Chief Complaint: Status post D&C, retained products of conception The patient is a 41-year-old 2 para 1001 who presented to the ER with significant pelvic pain and cramping with minimal ongoing bleeding having undergone suction D&C the day prior for missed . Her postoperative course was initially unremarkable for the first 24 hours. At approximately 1:00 yesterday afternoon, she began to have severe and unrelenting cramping and pain. She had a short trial of Tylenol 3 which failed to alleviate the pain significantly and thereafter presented to the emergency room for evaluation. In the emergency room, ultrasound demonstrated findings consistent with probable retained products of conception. As it was late in the evening, she is admitted for 23 hour observation and potential repeat dilation and aspiration curettage this morning. This morning, she reports that her pain continues to be fairly significant and she has begun to have more significant bleeding. Obstetrical history: 2 para 1001 with 1 previous term section without complications. Current statistics are listed in history present illness. Gynecologic history: Unremarkable with no history of any infections to include STDs. Review of Systems Review of systems is confined history of present illness. Past Medical History Past Medical History: Hypertension, Thyroid Disorder Additional Past Medical History / Comment(s): Heartburn occ. On HTN Rx in past, off since wgt loss. Past Hx thyroid Rx for hypothyroid. currently. Edema feet/ankles late in day. Allergy nasal sx. History of Any Multi-Drug Resistant Organisms: None Reported Past Surgical History: Adenoidectomy, Appendectomy, Ear Surgery, Tonsillectomy Additional Past Surgical History / Comment(s): BMT x7-10.D&C 2021 Past Anesthesia/Blood Transfusion Reactions: No Reported Reaction Past Psychological History: No Psychological Hx Reported Smoking Status: Never smoker Past Alcohol Use History: None Reported Past Drug Use History: None Reported - Past Family History Mother Family Medical History: Diabetes Mellitus, Hypertension Father Family Medical History: Hypertension, Myocardial Infarction ([place]) Medications and Allergies Home Medications Medication Instructions Recorded Confirmed Type Acetaminophen Tab [Tylenol] 650 mg PO Q6H PRN 10/13/19 10/25/21 History Acetaminophen-Codeine 300-30mg 1 - 2 tab PO Q4-6H PRN 10/25/21 10/25/21 History [Tylenol w/codeine #3] Allergies Allergy/AdvReac Type Severity Reaction Status Date / Time No Known Allergies Allergy Verified 10/25/21 17:37 Exam Vital Signs Temp Pulse Pulse Resp BP BP Pulse Ox 10/26/21 08:09 18 10/26/21 07:00 98.2 F 69 18 124/84 96 10/26/21 02:45 63 17 10/26/21 01:29 98.6 F 63 17 131/85 97 10/26/21 01:11 62 18 134/78 95 10/25/21 23:00 69 18 142/74 95 10/25/21 21:42 68 18 133/86 96 10/25/21 18:00 68 18 98 10/25/21 17:16 98.2 F 62 24 165/77 96 Intake and Output 10/25/21 10/26/21 10/26/21 22:59 06:59 14:59 Other: Voiding Method Toilet Toilet # Voids 2 Weight 100.698 kg 100.698 kg In general, this is a well-developed, well-nourished white female in some discomfort. Her heart has a regular rhythm and rate without murmur. Her lungs clear to auscultation bilaterally in all collins. Her abdomen is moderately obese, nondistended, has normal active bowel sounds, soft, nontender, without any palpable masses, hepatosplenomegaly, hernias. Her extremities are without any cyanosis, clubbing, or edema and are nontender to palpation bilaterally. Bimanual pelvic examination demonstrates normal external genitalia and BUS with normal vaginal mucosa and cervix of the cervix is dilated to approximately 1 cm with palpable tissue within the os. The uterus itself was approximately 7-8 weeks in size, midplane, mobile, slightly tender, normal in shape. The adnexa are nontender and normal without mass bilaterally. Results Result Diagrams: 10/26/21 05:49 10/26/21 05:49 Abnormal Lab Results - Last 24 Hours (Table) 10/25/21 10/25/21 10/25/21 Range/Units 18:09 18:09 18:09 WBC 13.8 H (3.8-10.6) k/uL Hgb 10.7 L (11.4-16.0) gm/dL Hct (34.0-46.0) % MCV 75.3 L (80.0-100.0) fL MCH 23.5 L (25.0-35.0) pg MCHC (31.0-37.0) g/dL RDW 16.7 H (11.5-15.5) % Neutrophils # 11.6 H (1.3-7.7) k/uL APTT 20.8 L (22.0-30.0) sec Sodium 136 L (137-145) mmol/L Potassium (3.5-5.1) mmol/L Chloride (98-107) mmol/L BUN (7-17) mg/dL Glucose 126 H (74-99) mg/dL Calcium (8.4-10.2) mg/dL Urine Protein (Negative) Urine Blood (Negative) Ur Leukocyte Esterase (Negative) Urine RBC (0-5) /hpf Urine WBC (0-5) /hpf Urine Mucus (None) /hpf 10/26/21 10/26/21 10/26/21 Range/Units 05:49 05:49 06:25 WBC 12.5 H (3.8-10.6) k/uL Hgb 9.3 L (11.4-16.0) gm/dL Hct 30.4 L (34.0-46.0) % MCV 76.0 L (80.0-100.0) fL MCH 23.4 L (25.0-35.0) pg MCHC 30.7 L (31.0-37.0) g/dL RDW 16.5 H (11.5-15.5) % Neutrophils # 8.9 H (1.3-7.7) k/uL APTT (22.0-30.0) sec Sodium (137-145) mmol/L Potassium 3.4 L (3.5-5.1) mmol/L Chloride 108 H (98-107) mmol/L BUN 6 L (7-17) mg/dL Glucose (74-99) mg/dL Calcium 7.5 L (8.4-10.2) mg/dL Urine Protein Trace H (Negative) Urine Blood Large H (Negative) Ur Leukocyte Esterase Trace H (Negative) Urine RBC 15 H (0-5) /hpf Urine WBC 6 H (0-5) /hpf Urine Mucus Few H (None) /hpf Assessment and Plan (1) Retained products of conception Current Visit: Yes Status: Acute Code(s): [id number] - SNOMED Code(s): 989708222 Plan: The diagnosis is presumptively based upon her symptoms and her current physical findings. I have discussed the options with she and her significant other and we have made the decision to proceed with repeat dilation and aspiration curettage. The risks and complications of the procedure been thoroughly discussed including the risk for bleeding, bleeding requiring transfusion, infection, and injury to local structures to specifically include uterine perforation and subsequent Asherman's syndrome. The patient is understood and agreed to proceed.
[2021-10-26] MEDS ORDERED: IV FLUID CONTINUATION 1,000 ML IV ONE ×2 (12:51)
[2021-10-26] MEDS ORDERED: MIDAZOLAM 2 MG/2 ML VIAL ONE (12:52)
[2021-10-26] MEDS ORDERED: LIDOCAINE 2% INJ 20 MG/ML (2 ML VIAL) ONE ×2 (12:52)
[2021-10-26] MEDS ORDERED: PROPOFOL 10 MG/ML 20 ML VIAL IV ONE (12:52)
[2021-10-26] MEDS ORDERED: ONDANSETRON 4 MG/2 ML VIAL ONE (12:52)
[2021-10-26] MEDS ORDERED: fentaNYL (PF) 50 MCG/ML 2 ML AMP ONE (12:52)
[2021-10-26] MEDS ORDERED: METHYLERGONOVINE 0.2 MG/ML 1 ML AMP ONE (12:52)
[2021-10-26] MEDS ORDERED: KETOROLAC 15 MG/ML 1 ML VIAL IVP PRN (13:23)
[2021-10-26] MEDS ORDERED: SIMETHICONE 80 MG CHEWABLE PO PRN (13:23)
[2021-10-26] MEDS ORDERED: METOCLOPRAMIDE 5 MG/ML 2 ML VIAL IVP PRN (13:23)
[2021-10-26] MEDS ORDERED: IBUPROFEN 600 MG TAB PO PRN (13:23)
[2021-10-26] MEDS ORDERED: Acetaminophen-Codeine 300-30mg TAB PO PRN ×2 (13:23)
[2021-10-26] MEDS ORDERED: diphenhydrAMINE 50 MG/ML 1 ML VIAL IVP PRN (13:23)
[2021-10-26] MEDS ORDERED: LACTATED RINGERS 1,000 ML IV SCH (13:30)
[2021-10-26] MEDS ORDERED: HYDROmorphone 0.5 MG/0.5 ML SYRINGE IVP ONE ×2 (13:30→13:55)
--- NOTE | 2021-10-26 13:30 | P.OP ---
Date of Procedure: 10/26/21 Preoperative Diagnosis: #1. Status post suction D&C #2. Presumed retained products of conception Postoperative Diagnosis: Same Procedure(s) Performed: #1. Dilation and aspiration curettage Anesthesia: other (Gen. by face mask) Surgeon: Neal Mcgraw Estimated Blood Loss (ml): 50 IV fluids (ml): 500 Urine output (ml): 50 Pathology: other (Intrauterine contents) Condition: stable Disposition: PACU Operative Findings: Preoperative pelvic examination demonstrated roughly 7 week midplane mobile normal shaped uterus with the suggestion of possible small fibroids. The adnexa were normal and without mass bilaterally. Intraoperatively, there was noted to be tissue sitting in the cervix and the posterior fornix of the vagina upon placement of the weighted speculum. The uterus sounded to approximately 7-8 cm. No dilation was required to place a #8 curved suction curet which, when suction was applied, produced a moderate to significant amount of tissue over the course of 3 passes. The typical gritty texture was encountered with sharp curettage following the suction curettage. The last pass with the suction curet failed to produce any further tissue. Description of Procedure: The patient was prepped and draped in usual fashion after general anesthesia was administered by the anesthesiologist. A weighted speculum was placed and the bladder drained of approximately 50 mL of clear opal urine. There was tissue noted to be seating within the cervical os as well as in the posterior fornix of the vagina which was removed with a ring forceps and retained to send with the pathology specimen. A #18 Hegar dilator was placed without difficulty. A #8 curved aspiration curet was placed to the fundus and suction applied. After adequate suction had been built, thorough and circumferential aspiration curettage was taken place from the fundus of the uterus to the cervix. Tissue was clearly seen passing through the tubing on the first pass. Similarly there was tissue passing through the tubing on the second pass. A third pass was made in which only 1 small piece of what appeared to be tissue was noted. The suction curet was set aside in favor of a sharp curette which was utilized to thoroughly and circumferentially perform sharp curettage at which time the typical gritty texture of the endometrium was encountered. No tissue was produced. Another pass was made with the suction curet at which time no further tissue was noted. All instrumentation was removed. There was some ongoing bleeding at the tenaculum site which was made hemostatic with pressure. She did have some ongoing bleeding from the uterus and an order was given to administer 0.2 mg of Methergine intramuscularly prior to the patient waking up. All sponge, instrument, and needle counts were correct. Estimated blood loss for the case was approximately 50 mL. There were no compilations. The patient tolerated the procedure well and proceeded to the recovery room in stable condition.
--- NOTE | 2021-10-26 13:37 | P.DS ---
Providers Date of admission: 10/25/21 23:54 Expected date of discharge: 10/26/21 Attending physician: Neal Mcgraw Primary care physician: Danish Fulton MD - Discharge Diagnosis(es) (1) Retained products of conception Current Visit: Yes Status: Acute Hospital Course: The patient is a 41-year-old 2 para 1 admitted through the emergency room for 23 hour observation having undergone a suction D&C on Wednesday for missed . She did well for the first 24 hours or so and then began to have significant and unrelenting pain which was not relieved with [id number] pain medications or Tylenol No. 3, she then presented to the emergency room at which time she had ultrasound which demonstrated probable retained products of conception which was consistent with her history. She was taken the operating room where she underwent repeat aspiration curettage with a moderate to significant amount tissue noted passing through the suction tubing. At the end of the procedure, the typical gritty texture of the endometrium was encountered and no further tissue was passing with the suction curet. She was deemed stable for discharge after the procedure and was discharged home to follow-up in the office as previously scheduled in approximately 2 weeks' time. She was to call for any significantly increased bleeding, foul-smelling lochia consistent with infection, significantly increasing pain, or anything else that concerned her. She additionally was to abstain from intercourse for at least 2 weeks' time. She understood her instructions and agrees follow up as noted above. Discharge medications included only [id number] analgesic pain medications and any home medications she may take. Maternal blood type is Rh+. Procedures: #1. 23 hour observation #2. IV pain control #3. Repeat dilation and aspiration curettage Patient Condition at Discharge: Stable Plan - Discharge Summary Discharge Rx Participant: No New Discharge Prescriptions: No Action Acetaminophen Tab [Tylenol] 650 mg PO Q6H PRN PRN Reason: Pain Acetaminophen-Codeine 300-30mg [Tylenol w/codeine #3] 1 - 2 tab PO Q4-6H PRN PRN Reason: Pain Discharge Medication List Acetaminophen Tab [Tylenol] 650 mg PO Q6H PRN 10/13/19 [History] Acetaminophen-Codeine 300-30mg [Tylenol w/codeine #3] 1 - 2 tab PO Q4-6H PRN 10/25/21 [History] Follow up Appointment(s)/Referral(s): Danish Fulton MD [Primary Care Provider] - 1-2 days Kirti Jamison DO [Doctor of Osteopathic Medicine] - 2 Weeks Discharge Disposition: HOME SELF-CARE
[2021-10-26 15:22] VITALS: RESP 18; TEMP 97.9
[2021-10-26 15:52] VITALS: BP 124/82; PULSE 77
== END 2021-10-26 16:44 | disposition home or self-care (01) ==
LOC: EC 17:15 → 6NMEDSUR 23:54
PROVIDERS: ADMIT Obstetrics & Gynecology; ATTEND Obstetrics & Gynecology
DX: O03.4 Incomplete spontaneous abortion without complication (principal); I10 Essential (primary) hypertension; E07.9 Disorder of thyroid, unspecified; E03.9 Hypothyroidism, unspecified; R60.0 Localized edema; Z90.49 Acquired absence of other specified parts of digestive tract; Z98.890 Other specified postprocedural states; Z83.3 Family history of diabetes mellitus; Z82.49 Family history of ischemic heart disease and other diseases of the circulatory system
CPT/HCPCS: 96376 ×2; 96361 ×2; 96374; 96375; 99285; 36415; 88305; 80053; 80048; 85025 ×2; 85610; 85730; 81001; 93975; 76856; 59820; G0378; J2250; J2210; J2405 ×2; J3010; J1170 ×3; J2704; J2001

== ENCOUNTER 2022-06-03 17:13 | Outpatient (CLI) | payer BC ==
[2022-06-03 18:56] VITALS: BP 133/79; PULSE 78; RESP 16; TEMP 97.3
--- NOTE | 2022-06-26 10:11 | P.MSEPDOC ---
Presenting Problems - Arrival Data Date of Arrival on Unit: 06/03/22 Time of Arrival on Unit: 17:11 Mode of Transport: Ambulatory - Complaint OB-Reason for Admission/Chief Complaint: Decreased Movement Comment: presents to triage with c/o not feeling baby move since last night except for 1 small mvt after drinking ice water approx 4pm Medical History - Information : 3 Para: 1 Term: 1 Number of Living Children: 1 - Gestational Age Gestational Age by RUPESH (wks/days): 26 Weeks and 6 Days - History Complications: GDM Comment: gdm, gest htn controlled with labetalol, repeat c/s. (first c/s due to maternal hx fx tailbone and uterine fibroids). Review of Systems - Review of Systems Constitutional: No problems Breast: No problems ENT: No problems Cardiovascular: No problems Respiratory: No problems Gastrointestinal: No problems Genitourinary: No problems Musculoskeletal: No problems Neurological: No problems Skin: No problems Vital Signs - Temperature Temperature: 97.3 F Temperature Source: Temporal Artery Scan - Pulse Left Pulse Rate: 78 Pulse Assessment Method: Automatic Cuff - Respirations Respiratory Rate: 16 Oxygen Delivery Method: Room Air O2 Sat by Pulse Oximetry: 98 - Blood Pressure Left Arm Blood Pressure: 133/79 Blood Pressure Mean: 97 Blood Pressure Source: Automatic Cuff Physician Notification - Physician Notified Physician Notified Date: 06/03/22 Physician: [id number] New Order Received: Yes - Notification Comment Comment: Reported to Dr Cobian pt here for not feeling movement since last night. baby very active on monitor. 26 6/7. maternal vitals wnl. no contractions, pain or complaints. order received pt may discharge home. Maternal Triage Index - Maternal Triage Index Presenting for scheduled procedure w/no complaint: No - Stat/Priority 1 Stat Priority 1: No - Urgent/Priority 2 Urgent Priority 2: Yes Provider Notified: Dr Cobian Provider Notified Time: 18:15 Criteria Met for Priority 2: presents to triage with c/o not feeling baby move since last night except for 1 small mvt after drinking ice water approx 4pm Disposition - Disposition OB Disposition: Physician follow up in office, Discharge to home Discharge Date: 06/03/22 Discharge Time: 18:35 I agree with the RN Medical Screening Exam: Yes Case reviewed; plan agreed upon as documented in EMR&OBIX.: Yes Diagnosis: DECREASED MOVEMENTS, SECOND TRIMESTER, FETUS 1
== END 2022-06-03 17:35 | disposition home or self-care (01) ==
LOC: FBPOP 17:13
PROVIDERS: ATTEND Obstetrics & Gynecology
DX: O36.8121 Decreased fetal movements, second trimester, fetus 1 (principal); Z3A.26 26 weeks gestation of pregnancy; Z87.891 Personal history of nicotine dependence
CPT/HCPCS: 99213